=== PATIENT | male | born 1970 | race Caucasian/White ===

== ENCOUNTER 2020-05-12 18:04 | Inpatient (IN) | payer MEDICARE ==
[~2020-05-12] VITALS: Ht 182.9 cm; Wt 83.9 kg
[2020-05-12 18:29] LABS: BASOPHILS ABSOLUTE AUTO 0.04 K/mm3 (0.00-0.23); BASOPHILS PERCENT AUTO 1 % (0-2); EOSINOPHILS ABSOLUTE AUTO 0.24 K/mm3 (0.00-0.68); EOSINOPHILS PERCENT AUTO 4 % (0-6); Hematocrit 40.8 % (37.0-53.0); Hemoglobin 13.1 g/dL (13.5-17.5); IMMATURE GRAN ABSOLUTE AUTO 0.01 K/mm3 (0.00-0.10); IMMATURE GRAN PERCENT AUTO 0 % (0-1); LYMPHOCYTES ABSOLUTE AUTO 3.19 K/mm3 (0.84-5.20); LYMPHOCYTES PERCENT AUTO 50 % (21-46); MONOCYTES ABSOLUTE AUTO 0.64 K/mm3 (0.16-1.47); MONOCYTES PERCENT AUTO 10 % (4-13); Mean Corpuscular HGB Conc 32.1 g/dL (31.5-36.5); Mean Corpuscular Volume 97 fL (80-100); NEUTROPHILS ABSOLUTE AUTO 2.31 K/mm3 (1.96-9.15); NEUTROPHILS PERCENT AUTO 36 % (41-73); Platelet Count 269 K/mm3 (150-400); RDW Coefficient Variation 12.9 % (11.7-14.2); Red Blood Cell Count 4.23 M/mm3 (4.30-5.90); White Blood Cell Count 6.43 K/mm3 (4.00-11.30)
[2020-05-12 18:46] LABS: Prothrombin Time Results 10.7 Sec (9.7-11.5)
[2020-05-12 18:51] LABS: Alanine Aminotransfer (ALT/SGP 28 U/L (12-78); Albumin, Blood 3.5 g/dL (3.4-5.0); Albumin/Globulin Ratio 1.1 (0.8-1.8); Alk Phos 130 U/L (50-136); Anion Gap 5 mmol/L (6-16); Aspartate Aminotrans (AST/SGOT 34 U/L (12-37); Beta HCG, Quantitative, Serum <1 mIU/mL (0-1); Bilirubin, Total 0.3 mg/dL (0.1-1.0); Blood Urea Nitrogen 20 mg/dL (8-24); Bun/Creatinine Ratio 23.4 (12.0-20.0); CO2, Blood 28 mmol/L (21-32); Chloride, Blood 111 mmol/L (98-108); Creatinine, Blood 0.86 mg/dL (0.60-1.20); Ethanol (Alcohol), Blood, Med <3 mg/dL; Globulin, Blood 3.3 g/dL (2.2-4.0); Glomerular Filtration Rate >60 (60-); Glucose, Blood 88 mg/dL (70-99); Potassium, Blood 4.5 mmol/L (3.5-5.5); Sodium, Blood 144 mmol/L (136-145); Total Protein, Blood 6.8 g/dL (6.4-8.2)
[2020-05-12 19:51] LABS: Source, Urine Voided
[2020-05-12 19:56] LABS: Appearance, Urine Clear (Clear); Bilirubin, Urine Neg (Neg); Blood, Urine Neg (Neg); Color, Urine Yellow (P-Yellow); Glucose Qualitative, Urine 1+ (Neg); Ketones, Urine Neg (Neg); Leukocyte Esterase, Urine Neg (Neg); Nitrite, Urine Neg (Neg); Protein, Urine Neg (Neg); Urobilinogen, Urine NORM (Normal)
[2020-05-12 21:04] LABS: U Amphetamine Screen DETECTED; U Barbituate Screen Not Detected; U Benzodiazapine Screen Not Detected; U Buprenorphine Screen Not Detected; U Cannabinoids Screen DETECTED; U Cocaine Screen Not Detected; U Methadone Screen Not Detected; U Methamphetamine Screen DETECTED; U Opiates Screen DETECTED; U Oxycodone Screen Not Detected; U Phencyclidine Screen Not Detected; U Propoxyphene Screen Not Detected
--- NOTE | 2020-05-13 06:18 | NUR ---
SHIFT SUMMARY NEW ADMIT YESTARDAY EVENING. DROWSY/UNCOOPERATIVE AT TIMES. PT REPORTING DISCOMFORT TO HEAD/NECK, DECREASED WITH 25mcg FENTANYL X2 THIS SHIFT. NO NAUSEA/EMESIS. SWELLING TO NOSE/CHEEKS, INCREASED THIS AM FROM ADMISSION. C-COLLAR IN PLACE. PT DENIES N/T ALL EXTREMITIES, MOVES TOES + FINGERS WELL, BRISK CAP REFILL. ABRASIONS TO NOSE/BUE/BLE, PT REFUSING STAFF TO CLEAN WOUNDS THIS SHIFT, CONTINUE TO ENCOURAGE TODAY. PT DROWSY T/O SHIFT, UNABLE TO ANSWER HISTORY QUESTIONS WELL, CONTINUE TO ASSESS. REFUSED LAB THIS AM. IV ABX PER ORDERS. MRI THIS AM. PT CURRENTLY RESTING IN BED WITH CALL LIGHT IN REACH.
[2020-05-13 09:37] LABS: BASOPHILS ABSOLUTE AUTO 0.05 K/mm3 (0.00-0.23); BASOPHILS PERCENT AUTO 1 % (0-2); EOSINOPHILS ABSOLUTE AUTO 0.15 K/mm3 (0.00-0.68); EOSINOPHILS PERCENT AUTO 2 % (0-6); Hematocrit 41.4 % (37.0-53.0); Hemoglobin 13.4 g/dL (13.5-17.5); IMMATURE GRAN ABSOLUTE AUTO 0.02 K/mm3 (0.00-0.10); IMMATURE GRAN PERCENT AUTO 0 % (0-1); LYMPHOCYTES ABSOLUTE AUTO 2.01 K/mm3 (0.84-5.20); LYMPHOCYTES PERCENT AUTO 23 % (21-46); MONOCYTES PERCENT AUTO 8 % (4-13); Mean Corpuscular HGB 31.2 pg (26.0-34.0); Mean Corpuscular HGB Conc 32.4 g/dL (31.5-36.5); Mean Corpuscular Volume 96 fL (80-100); Mean Platelet Volume 8.9 fL (9.1-12.4); NEUTROPHILS ABSOLUTE AUTO 5.92 K/mm3 (1.96-9.15); NEUTROPHILS PERCENT AUTO 67 % (41-73); Platelet Count 258 K/mm3 (150-400); RDW Standard Deviation 46.3 fL (35.1-46.3); White Blood Cell Count 8.85 K/mm3 (4.00-11.30)
[2020-05-13 09:53] LABS: Anion Gap 3 mmol/L (6-16); Blood Urea Nitrogen 10 mg/dL (8-24); Bun/Creatinine Ratio 14.1 (12.0-20.0); CO2, Blood 28 mmol/L (21-32); Calcium, Blood 8.8 mg/dL (8.5-10.1); Chloride, Blood 111 mmol/L (98-108); Creatinine, Blood 0.71 mg/dL (0.60-1.20); Glomerular Filtration Rate >60 (60-); Glucose, Blood 88 mg/dL (70-99); Potassium, Blood 4.2 mmol/L (3.5-5.5); Sodium, Blood 142 mmol/L (136-145)
--- NOTE | 2020-05-13 10:42 | NUR ---
CALLED SPEECH THERAPY TO DISCUSS SWALLOW EVALUATION, LEFT MESSAGE REQUESTING CALL BACK
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
--- NOTE | 2020-05-14 05:17 | NUR ---
SHIFT SUMMARY PT A/O X4. HAS BEEN VERY DROWSY BUT AWAKES EASILY. IND IN ROOM. PT HAS BEEN SLEEPING MOST OF THE NIGHT, CALL LIGHT IN PLACE. PAIN AND SWELLING TO NOSE AND R EYE. PAIN MANAGED WITH IV FENTANYL PER ORDER. PT TOLERATING PO INTAKE, VOIDING, AMBULATING. NO ACUTE CHANGES OVERNIGHT.
--- NOTE | 2020-05-14 12:19 | NUR ---
PT GOING OUTSIDE TO SMOKE OFFERED TO GET NICOTINE PATCH; PT DECLINED. AMBULATING OUTSIDE. ADVISED PT TO RETURN WITHIN HALF HOUR FOR SAFETY.
--- NOTE | 2020-05-14 15:45 | NUR ---
MARY ANNE INSTRUMENTATION MANAGERANDREA IN TO SEE PT.
--- NOTE | 2020-05-14 16:55 | NUR ---
pt out of room
--- NOTE | 2020-05-14 17:30 | NUR ---
SUMMARY NO ACUTE CHANGES T/O SHIFT. PT SLEPT OFF AND ON T/O SHIFT. AMBULATED OUTSIDE INDEPENDENTLY TWICE. TOLERATING REGULAR DIET. MEDICATED PER ORDERS FOR PAIN T/O SHIFT. PT COMPLIANT W/C COLLAR REMAINING IN PLACE. IV ABX INFUSING PER ORDERS. CALL LIGHT IN REACH. PT NOW RESTING W/EYES CLOSED.
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
--- NOTE | 2020-05-15 05:33 | NUR ---
WALKING OUTSIDE. PT WANTED TO GO OUTSIDE AND SMOKE. THIS RN DISCOURAGED THE PATIENT HE WAS UNSTEADY ON HIS FEET. ENCOURAGED PATIENT TO SIT ON EDGE OF THE BED TO PUT PANTS ON, HE NEEDED TO GRAB ON TO THE BED TO NOT FALL. HE TOLD ME THAT HE IS COMPLETELY FINE AND INSISTED THAT HE GO OUTSIDE. ATTEMPTED TO REDIRECT PATIENT. HE LEFT WITH HIS JACKET AT THIS TIME. ALERTED CHARGE NURSE, WILL MONITOR FOR PATIENT TO RETURN.
--- NOTE | 2020-05-15 08:31 | NUR ---
PT GOING OUTSIDE. WANTED TO GO OUTSIDE BEFORE STARTING SCHEDULED ABX. ASKED PT TO BE GONE NO LONGER THAN 20 MINUTES.
--- NOTE | 2020-05-15 10:37 | NUR ---
PT AMBULATING OUTSIDE.
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
--- NOTE | 2020-05-15 13:28 | NUR ---
PT OUT OF ROOM
--- NOTE | 2020-05-15 15:15 | NUR ---
PT OUT OF ROOM
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
--- NOTE | 2020-05-15 16:04 | NUR ---
DR DOUFF IN TO SEE PT.
--- NOTE | 2020-05-15 17:14 | NUR ---
SUMMARY DR PACHECO SAW PT AND PLACED ORDERS THIS AFTERNOON. ADAPT TO BEDSIDE TO SEE PT AND DISCUSS OPTIONS AFTER PT IS DC'D. PT BECAME VERY AGITATED THIS AFTERNOON AFTER SEEING FATHER. MEDICATED PER ORDERS W/ATIVAN. AMBULATES OUTSIDE FREQUENTLY. PT BECAME CONFUSED TO WHERE ROOM WAS LOCATED FIRST TIME AMBULATED THIS AM AND WAS ESCORTED BACK TO ROOM FROM PCU. HAS NOT APPEARED TO HAVE DIFFICULTY AMBULATING OUT AND BACK SINCE THAT TIME. HAS SLEPT OFF AND ON T/O DAY. TOLERATING PO. INDEPENDENT IN ROOM.
--- NOTE | 2020-05-15 17:57 | NUR ---
PT BACK TO ROOM AFTER AMBULATING OUTSIDE.
--- NOTE | 2020-05-15 18:50 | NUR ---
PT AMBULATING IN HALLWAY IND.
--- NOTE | 2020-05-15 19:15 | NUR ---
PT RETURNED TO ROOM AT THIS TIME BY IND AMBULATION.
--- NOTE | 2020-05-16 00:22 | NUR ---
PT OUT OF ROOM IND SINCE 2244 TODAY AND HAS YET TO RETURN. SECURITY NOTIFIED, STATES PT IS LEAVING HOSPITAL PROPERTY VIA [facility]. HOSPITAL CYTOGENETICIST NOTIFIED OF SITUATION. PLAN TO NOTIFY PROVIDER AND AWAIT PT RETURN; POTENTIALLY D/C AMA PER POLICY.
--- NOTE | 2020-05-16 01:10 | NUR ---
PT STILL HAS NOT RETURNED TO ROOM. SECURITY CONTACTED AND HAVE NOT OBSERVED PT RETURNING ONTO HOSP PROPERTY. NURSING COSMETIC CHEMIST AND HOSPITALIST UPDATED. PLAN TO D/C PT AMA UPON RETURN. PT BELONGINGS LEFT IN ROOM PLACED INTO BELONGING BAG.
--- NOTE | 2020-05-16 03:54 | NUR ---
PT HAS BEEN GONE SINCE , IMAGING SPECIALIST WAS NOTIFIED, DR. FLORES WAS NOTIFIED, SECURITY WAS NOTIFIED. BELONGINGS ARE PACKED SAVED. PT DC'D AMA. PT DOES STILL HAVE IV IN PLACE. NOTIFIED SECURITY THAT IF PT TO RETURN FOR BELONGINGS THE IV NEEDS TO BE DC'D BY RN.
== END 2020-05-16 03:57 | disposition left against medical advice (07) | DRG 154 ==
LOC: ER 18:04 → SURS 18:05
PROVIDERS: Emergency Medicine; Internal Medicine; ADMIT Surgery
DX: S02.2XXA Fracture of nasal bones, initial encounter for closed fracture (principal); S14.105A Unspecified injury at C5 level of cervical spinal cord, initial encounter; F17.210 Nicotine dependence, cigarettes, uncomplicated; F20.9 Schizophrenia, unspecified; K08.9 Disorder of teeth and supporting structures, unspecified; R40.2413 Glasgow coma scale score 13-15, at hospital admission; R45.1 Restlessness and agitation; F15.10 Other stimulant abuse, uncomplicated; F41.9 Anxiety disorder, unspecified; S16.1XXA Strain of muscle, fascia and tendon at neck level, initial encounter; F11.10 Opioid abuse, uncomplicated; Y92.481 Parking lot as the place of occurrence of the external cause; V48.2XXA Person on outside of car injured in noncollision transport accident in nontraffic accident, initial encounter
CPT/HCPCS: 36415; 70450; 70486; 71260; 72125; 72141; 74177; 80048; 80053; 81003; 83690; 84702; 85025; 85610; 85651; 86140; 92610; 96365-59; 96375; 99285-25; A9270; A9270-GY; C9113; G0480; J0690; J1885; J2060; J3010; J7040; Q9967